=== PATIENT | female | born 1995 | race African-American/Black ===

== ENCOUNTER 2019-06-11 14:58 | Outpatient (CLI) | payer OTHER ==
[~2019-06-11 14:58] MED LIST: ISOVUE-370 76%-LOCM 1 ML ONE
--- NOTE | 2019-06-11 17:11 | CT ---
CT PULMONARY ANGIOGRAM WITH IV CONTRAST AND 3D POSTPROCESSIN06/11/19 HISTORY: Shortness of breath, elevated D-dimer [place]. FINDINGS: There is inadequate opacification of the peripheral pulmonary arterial vasculature. No filling defect s are seen in the central pulmonary arteries. No aneurysmal dilatation of the thoracic aorta is seen. N pleural or pericardial effusions are identified. No pneumothoraces, lobar consolidation, or lung n odules/masses are seen. Upper abdominal tomograms demonstrate changes of fatty infiltration of the li wily. IMPRESSION: No CT evidence of central pulmonary embolism. Peripheral embolism cannot be excluded. If there is hig h suspicion for pulmonary embolism, further evaluation with VQ scan should be performed. Discussed over the telephone with Dr. Myriam Rivero at 4:46 p.m. POS: POPPY
--- NOTE | 2019-06-11 19:04 | NM ---
EXAM: NM Lung Vent Perf Imaging PROVIDED CLINICAL HISTORY: Elevated d-dimer. Suboptimal opacification of pulmonary arteries on recent CTA of the chest. COMPARISON: None FINDINGS: No ventilation defect is identified. There is normal washout of radiotracer on the ventilation portio n of the study. No segmental or subsegmental perfusion defect is identified. There is a normal perfusion gradient see n. No ventilation/perfusion mismatch is seen. IMPRESSION: Low probability for pulmonary embolus.
--- NOTE | 2019-06-11 19:41 | RAD ---
EXAM: Two views chest PROVIDED CLINICAL HISTORY: Patient with elevated d-dimer and shortness of breath. Correlate with ventilation perfusion study. COMPARISON: None FINDINGS: Cardiac silhouette and pulmonary vasculature are within normal limits. The lungs are clear. The osse ous structures have a normal appearance. IMPRESSION: No acute cardiopulmonary process.
--- NOTE | 2019-06-11 19:50 | ULT ---
EXAM: BILATERAL EXTREMITY VENOUS ULTRASOUND WITH DOPPLER: 06/11/19 HISTORY: Elevated D-dimer. Edema. COMPARISON: None. TECHNIQUE: Brunner scale, color flow, Doppler imaging with spectral waveform analysis of the left and right lower e xtremity venous system is performed. FINDINGS: Bilaterally, there is compressibility, presence of flow and augmentation in the common femoral vein, femoral vein, and popliteal vein. There is flow in bilateral greater saphenous veins, profunda veins, and posterior tibial veins. IMPRESSION: No evidence of thrombus in the left or right lower extremity deep venous system. POS: PPP
== END 2019-06-11 14:59 | disposition home or self-care (01) ==
LOC: SCSCT 14:58 → CT 14:59
PROVIDERS: ATTEND Physician Assistant Medical
DX: R79.1 Abnormal coagulation profile (principal)
CPT/HCPCS: 71046; 71275; 78582; 93970; A9540; A9558; Q9966